=== PATIENT | male | born 1995 | race Caucasian/White ===

== ENCOUNTER 2024-01-17 14:34 | Inpatient (IN) | payer MEDICAID, OTHER ==
[~2024-01-17] VITALS: Ht 177.8 cm; Wt 84.8 kg
[~2024-01-17 14:34] MED LIST: BRIM5DRO28 OU
[2024-01-17 15:32] LABS: BASOPHILS % (AUTO) 0.6 % (0.0-2.0); EOSINOPHILS % (AUTO) 1.6 % (1.0-6.0); HEMATOCRIT 45.5 % (41-53); LYMPHOCYTES # (AUTO) 2.8 K/uL (1.0-4.8); LYMPHOCYTES % (AUTO) 29.4 % (22.0-44.0); MEAN CORPUSCULAR HEMOGLOBIN 29.2 pg (26.0-34.0); MEAN CORPUSCULAR VOLUME 89 fL (80-100); MONOCYTES # (AUTO) 0.9 K/uL (0.1-1.0); MONOCYTES % (AUTO) 8.9 % (2.0-9.0); NEUTROPHILS # (AUTO) 5.7 K/uL (1.8-7.7); NEUTROPHILS % (AUTO) 59.5 % (40.0-70.0); PLATELET COUNT (AUTO) 520 K/uL (150-450); RED BLOOD CELL COUNT(AUTO) 5.14 MIL/uL (4.50-5.90); RED CELL DISTRIBUTION WIDTH 13.9 % (11.5-14.5); WHITE BLOOD COUNT (AUTO) 9.5 K/uL (4.5-11.0)
[2024-01-17] MEDS: HALOPERIDOL LACTATE 5 MG/ML VIAL IM ONE (15:33)
[2024-01-17] MEDS: DiphenhydrAMINE HCL 50 MG/ML VIAL IM ONE (15:33)
[2024-01-17] MEDS: LORazepam 2 MG/ML VIAL IM ONE (15:34)
[2024-01-17 15:41] LABS: ANION GAP 7 mmol/L (8-16); CALCIUM, TOTAL 8.7 mg/dL (8.8-10.5); CARBON DIOXIDE 27 mmol/L (22-29); CHLORIDE 104 mmol/L (98-107); CREATININE 0.83 mg/dL (0.60-1.30); GLOMERULAR FILTR. RATE CALC > 60 mL/min (>60); GLUCOSE,RANDOM 97 mg/dL (70-110); POTASSIUM 3.5 mmol/L (3.5-5.1); SODIUM SERUM 138 mmol/L (136-145); UREA NITROGEN, BLOOD 10 mg/dL (7-18)
[2024-01-17 16:16] LABS: ALCOHOL, BLOOD (SERUM) 224 mg/dL (0-10)
[2024-01-17 17:31] LABS: COVID AG,FIA SOURCE NASAL SWAB
[2024-01-17 17:56] LABS: SARS-COV2 (COVID) ANTIGEN,FIA Negative (Negative)
[2024-01-17] MEDS ORDERED: ACETAMINOPHEN 325 MG TABLET PO PRN (21:45)
[2024-01-17] MEDS ORDERED: MAG HYDROX/ALUMINUM HYD/SIMETH ES 30 ML SUSPENSION UDCUP PO PRN (21:45)
[2024-01-17] MEDS ORDERED: MAGNESIUM HYDROXIDE SUSPENSION 30 ML UDCUP PO PRN (21:45)
[2024-01-17] MEDS ORDERED: LOPERAMIDE HCL 2 MG CAPSULE PO PRN (21:45)
[2024-01-18] MEDS: HALOPERIDOL LACTATE 5 MG/ML VIAL IM ONE (01:00)
[2024-01-18] MEDS: DiphenhydrAMINE HCL 50 MG/ML VIAL IM ONE (01:00)
[2024-01-18] MEDS: LORazepam 2 MG/ML VIAL IM ONE (01:00)
[2024-01-18 02:56] VITALS: BP 126/67; PULSE 87; RESP 17; TEMP 97.6
[2024-01-18] MEDS ORDERED: NICOTINE POLACRILEX 2 MG LOZENGE PO PRN (06:30)
[2024-01-18] MEDS ORDERED: MAG HYDROX/ALUMINUM HYD/SIMETH ES 30 ML SUSPENSION UDCUP PO PRN (06:45)
[2024-01-18] MEDS ORDERED: LOPERAMIDE HCL 2 MG CAPSULE PO PRN (06:45)
[2024-01-18] MEDS ORDERED: GuaiFENesin/D-METHORPHAN [SUGAR-FREE] 200-20MG/10 ML SYRUP UDCUP PO PRN (06:45)
[2024-01-18] MEDS ORDERED: CloNIDine HCL 0.1 MG TABLET PO PRN (06:45)
[2024-01-18] MEDS ORDERED: MAGNESIUM HYDROXIDE SUSPENSION 30 ML UDCUP PO PRN (06:45)
[2024-01-18] MEDS ORDERED: PETROLATUM,WHITE 28 GM JELLY TP PRN (06:45)
[2024-01-18] MEDS ORDERED: IBUPROFEN 400 MG TABLET PO PRN (06:45)
[2024-01-18] MEDS ORDERED: ONDANSETRON 4 MG TABLET PO PRN (06:45)
[2024-01-18] MEDS ORDERED: ALBUTEROL SULFATE HFA 90 MCG/PUFF 8 GM INHALER IH PRN (06:45)
[2024-01-18] MEDS ORDERED: ACETAMINOPHEN 325 MG TABLET PO PRN (06:45)
[2024-01-18] MEDS ORDERED: DOCUSATE SODIUM 100 MG CAPSULE PO PRN (06:45)
[2024-01-18] MEDS: NICOTINE 14 MG/24 HOUR PATCH TD PRN (07:50)
[2024-01-18 08:00] VITALS: BP 118/74; PULSE 86; RESP 16; TEMP 98.7; O2SAT 98
[2024-01-18 08:40] VITALS: BP 118/74; PULSE 86; RESP 16; TEMP 98.7; O2SAT 98
[2024-01-18] MEDS: LORazepam 2 MG TABLET PO PRN (13:30)
[2024-01-18] MEDS: HALOPERIDOL 5 MG TABLET PO PRN (13:30)
[2024-01-18 20:00] VITALS: BP 136/72; PULSE 91; RESP 16; TEMP 98; O2SAT 98
[2024-01-18] MEDS: QUEtiapine FUMARATE 200 MG TABLET PO SCH (20:31)
[2024-01-18] MEDS: ZOLPIDEM TARTRATE 10 MG TABLET PO PRN (20:31)
[2024-01-18 23:30] VITALS: RESP 18
[2024-01-19 08:38] LABS: APPEARANCE,URINE HAZY (CLEAR); BILIRUBIN,URINE NEGATIVE (NEGATIVE); COLOR,URINE YELLOW (YELLOW); GLUCOSE, URINE (UA) NEGATIVE (NEGATIVE); KETONES,URINE NEGATIVE (NEGATIVE); LEUKOCYTE ESTERASE ,URINE NEGATIVE (NEGATIVE); NITRATE,URINE NEGATIVE (NEGATIVE); OCCULT BLOOD,URINE NEGATIVE (NEGATIVE); PH,URINE 7.5 (5.0-8.0); PH,URINE DRUG SCREEN 7.5 (5.0-8.0); PROTEIN,URINE 30-70 mg/dL (NEGATIVE); SPECIFIC GRAVITIY, URINE 1.033 (1.003-1.030); UROBILINOGEN,URINE <=1.0 mg/dL (<=1.0)
[2024-01-19 08:45] LABS: ALCOHOL, URINE DRUG SCREEN NEGATIVE (NEGATIVE); AMPHET/METH SCREEN,URINE NEGATIVE (NEGATIVE); BARBITURATE SCREEN, URINE NEGATIVE (NEGATIVE); BENZODIAZEPINES SCREEN,URINE NEGATIVE (NEGATIVE); CANNABINOID SCREEN,URINE POSITIVE (NEGATIVE); COCAINE SCREEN,URINE NEGATIVE (NEGATIVE); METHADONE SCREEN, URINE NEGATIVE (NEGATIVE); OPIATE SCREEN,URINE NEGATIVE (NEGATIVE); PHENCYCLIDINE SCREEN,URINE NEGATIVE (NEGATIVE)
[2024-01-19 08:45] LABS: HEMOGLOBIN A1C 5.3 % (3.8-5.6)
[2024-01-19 09:04] LABS: THYROID STIMULATING HORMONE 0.64 uIU/mL (0.36-3.74)
[2024-01-19 09:15] VITALS: BP 117/77; PULSE 87; RESP 18; TEMP 97.3; O2SAT 98
[2024-01-19 20:22] VITALS: BP 118/65; PULSE 73; RESP 18; TEMP 97.8; O2SAT 99
[2024-01-20] MEDS ORDERED: QUET200T30 PO ×2 (09:26→10:34)
[2024-01-20 09:54] VITALS: BP 137/61; PULSE 79; RESP 18; TEMP 97.4; O2SAT 98
== END 2024-01-20 13:45 | disposition home or self-care (01) | DRG 750 ==
LOC: EMS 14:34 → B3A 01-18 01:16
PROVIDERS: ADMIT Psychiatry & Neurology Psychiatry; ATTEND Psychiatry & Neurology Psychiatry
PROC: GZHZZZZ Group Psychotherapy (ICD-10-PCS; principal; 2024-01-19)
DX: F25.0 Schizoaffective disorder, bipolar type (principal); F10.10 Alcohol abuse, uncomplicated; Z78.1 Physical restraint status; Z79.899 Other long term (current) drug therapy; Y90.7 Blood alcohol level of 200-239 mg/100 ml; Z20.822 Contact with and (suspected) exposure to COVID-19
CPT/HCPCS: 70450; 70486; 72125; 80048; 80061; 80307; 81003; 83036; 84443; 85025; G0480; J1200; J1630; J2060